=== PATIENT | female | born 1950 | race Caucasian/White ===

== ENCOUNTER 2019-09-30 15:15 | Emergency (ER) | payer BC ==
[2019-09-30] MEDS ORDERED: Metoclopramide 10 MG/2 ML SDV IVPUSH ONE (15:54)
[2019-09-30] MEDS ORDERED: HYDROmorphone 0.5 MG/0.5 ML Syringe IVPUSH ONE ×2 (15:54→17:58)
[2019-09-30] MEDS ORDERED: Hyoscyamine 0.125 MG Tab.SL SL ONE (15:54)
[2019-09-30] MEDS ORDERED: Ketorolac 30 MG/ML SDV IVPUSH ONE (15:54)
[2019-09-30] MEDS ORDERED: Sodium Chloride 0.9% 1,000 ML IV SCH (16:00)
--- NOTE | 2019-09-30 16:07 | EDM.PDOC ---
ED HPI GENERAL MEDICAL PROBLEM - General Chief Complaint: Abdominal Pain Stated Complaint: [facility] Time Seen by Provider: 09/30/19 15:30 Source of Information: Reports: Patient, RN Notes Reviewed History Limitations: Reports: No Limitations - History of Present Illness INITIAL COMMENTS - FREE TEXT/NARRATIVE: Patient is a 69-year-old female who presents via [facility] ambulance service to the ED for the evaluation of severe sudden onset right upper quadrant pain that shot to her right shoulder. The patient notes that she was a preschool teacher's assistant at school, when at around 2:15 PM, she developed sudden onset right upper abdominal pain that hit her out of nowhere, and this did radiate to her right shoulder, she notes this to be somewhat intermittent, but it is kind of a constant pain there all the time with flares of it being worse. Patient notes that she was nauseated and did vomit with this pain as well. Patient states that the pain was so intense, that she felt as if she could not straighten her body out. She has not had any abdominal surgeries to still retains her appendix and gallbladder. She notes that for lunch at around noon today they had cheeseburger, beans, smiley fries and a veggie plate. Patient denies any sort of blood in her urine or dysuria, urinary frequency or urgency. She notes that she did wake up this morning with a minor backache and this is not normal for her. Patient also recounts a previous fall within the last week or so, but she states this was onto her left side. Patient states she has not felt pain like this before ever. Patient states she was in good health prior to this. 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: Reports: IV/IO Right Shoulder Pain Score (Numeric/FACES): 8 - Related Data Allergies Allergy/AdvReac Type Severity Reaction Status Date / Time No Known Allergies Allergy Verified 09/30/19 15:22 Home Meds: Home Meds Acetaminophen/HYDROcodone [[place] 325-5 MG] 1 tab PO Q6H PRN #12 tablet 09/30/19 [Rx] Lisinopril 10 mg PO DAILY 09/30/19 [History] Ondansetron [Zofran ODT] 4 mg PO Q8H PRN #15 tab.dis 09/30/19 [Rx] Simvastatin 40 mg PO DAILY 09/30/19 [History] Zolpidem Tartrate [Ambien] 5 mg PO DAILY 09/30/19 [History] Past Medical History Cardiovascular History: Reports: Hypertension 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 Denies: Diarrhea : Denies: Dysuria, Frequency, Urgency Musculoskeletal: Reports: Shoulder Pain (Right shoulder pain) ED EXAM, GI/ABD - Physical Exam Exam: See Below Exam Limited By: No Limitations General Appearance: Alert, WD/WN, No Apparent Distress Eyes: Bilateral: Normal Appearance Throat/Mouth: Normal Inspection, Normal Lips, Normal Teeth, Normal Gums, Normal Oropharynx, Normal Voice, No Airway Compromise Head: Atraumatic, Normocephalic Neck: Normal Inspection, Supple, Non-Tender, Full Range of Motion Respiratory/Chest: No Respiratory Distress, Lungs Clear, Normal Breath Sounds, No Accessory Muscle Use, Chest Non-Tender Cardiovascular: Normal Peripheral Pulses, Regular Rate, Rhythm, No Murmur GI/Abdominal Exam: Normal Bowel Sounds, Soft, No Distention, No Mass, Tender ( RUQ, giron sign positive. Pt notes that the pain is worsened by deep breaths). No: Guarding, Rigid Extremities: Normal Inspection, Normal Range of Motion, Normal Capillary Refill Neurological: Alert, Oriented, Normal Cognition, No Motor/Sensory Deficits Psychiatric: Normal Affect, Normal Mood Skin Exam: Warm, Dry, Intact, Normal Color, No Rash Course - Vital Signs Last Recorded V/S: Last Vital Signs Temp 97.4 F 09/30/19 15: Pulse 58 L 09/30/19 15:19 Resp 16 09/30/19 15:19 BP 153/75 H 09/30/19 15:19 Pulse Ox 99 09/30/19 15:19 - Orders/Labs/Meds Orders: Active Orders 24 hr Category Date Time Status Sodium Chloride 0.9% [Normal Saline] 1,000 ml Med 09/30/19 16:00 Ordered IV ASDIRECTED Medication Orders Sodium Chloride (Normal Saline) 1,000 mls @ 999 mls/hr IV ASDIRECTED POLA Last Admin: 09/30/19 16:11 Dose: 999 mls/hr Labs: Laboratory Tests 09/30/19 09/30/19 09/30/19 Range/Units 16:28 16:28 17:49 WBC 12.17 H (3.98-10.04) K/mm3 RBC 4.21 (3.98-5.22) M/mm3 Hgb 12.5 D (11.2-15.7) gm/dl Hct 38.0 (34.1-44.9) % MCV 90.3 (79.4-94.8) fl MCH 29.7 (25.6-32.2) pg MCHC 32.9 (32.2-35.5) g/dl RDW Std Deviation 44.2 (36.4-46.3) fL Plt Count 218 (182-369) K/mm3 MPV 11.0 (9.4-12.3) fl Neutrophils % (Manual) 77 H (40-60) % Band Neutrophils % 1 (0-10) % Lymphocytes % (Manual) 20 (20-40) % Atypical Lymphs % 0 % Monocytes % (Manual) 0 L (2-10) % Eosinophils % (Manual) 1 (0.7-5.8) % Basophils % (Manual) 1 (0.1-1.2) Platelet Estimate Adequate RBC Morph Comment Normal Sodium 137 (136-145) mEq/L Potassium 4.2 (3.5-5.1) mEq/L Chloride 101 (98-107) mEq/L Carbon Dioxide 24 (21-32) mEq/L Anion Gap 16.2 H (5-15) BUN 23 H (7-18) mg/dL Creatinine 1.0 (0.55-1.02) mg/dL Est Cr Clr Drug Dosing 46.50 mL/min Estimated GFR (MDRD) 55 (>60) mL/min BUN/Creatinine Ratio 23.0 H (14-18) Glucose 116 H (80-115) mg/dL Calcium 9.2 (8.5-10.1) mg/dL Total Bilirubin 0.5 (0.2-1.0) mg/dL GGT 29 (5-55) U/L AST 18 (15-37) U/L ALT 28 (14-59) U/L Alkaline Phosphatase 79 (46-116) U/L C-Reactive Protein 0.3 (<1.0) mg/dL Total Protein 7.7 (6.4-8.2) g/dl Albumin 4.3 (3.4-5.0) g/dl Globulin 3.4 gm/dL Albumin/Globulin Ratio 1.3 (1-2) Amylase 44 (25-115) U/L Lipase 336 (73-393) U/L Urine Color Yellow (Yellow) Urine Appearance Clear (Clear) Urine pH 6.5 (5.0-8.0) Ur Specific [place] 1.025 (1.005-1.030) Urine Protein Negative (Negative) Urine Glucose (UA) Negative (Negative) Urine Ketones Negative (Negative) Urine Occult Blood Negative (Negative) Urine Nitrite Negative (Negative) Urine Bilirubin Negative (Negative) Urine Urobilinogen 0.2 (0.2-1.0) Ur Leukocyte Esterase Negative (Negative) Urine RBC 0-5 (0-5) /hpf Urine WBC 0-5 (0-5) /hpf Ur Squamous Epith Cells 0-5 (0-5) /hpf Urine Bacteria Few (FEW) /hpf Urine Mucus Few (FEW) /hpf Meds: Medications Generic Name Dose Route Start Last Admin Trade Name Jed PRN Reason Stop Dose Admin Sodium Chloride 1,000 mls @ 999 mls/hr 09/30/19 16:00 09/30/19 16:11 Normal Saline IV 999 mls/hr ASDIRECTED POLA Administration Discontinued Medications Generic Name Dose Route Start Last Admin Trade Name Jed PRN Reason Stop Dose Admin Hydromorphone HCl 0.5 mg 09/30/19 15:54 09/30/19 16:11 Dilaudid IVPUSH 09/30/19 15:55 0.5 mg ONETIME ONE Administration Hydromorphone HCl 0.5 mg 09/30/19 17:58 09/30/19 18:05 Dilaudid IVPUSH 09/30/19 17:59 0.5 mg ONETIME ONE Administration Hyoscyamine 0.125 mg 09/30/19 15:54 09/30/19 16:17 Hyomax-Sl SL 09/30/19 15:55 0.125 mg ONETIME ONE Administration Ketorolac Tromethamine 30 mg 09/30/19 15:54 09/30/19 16:11 Toradol IVPUSH 09/30/19 15:55 30 mg ONETIME ONE Administration Metoclopramide HCl 10 mg 09/30/19 15:54 09/30/19 16:11 Reglan IVPUSH 09/30/19 15:55 10 mg ONETIME ONE Administration Ondansetron HCl 4 mg 09/30/19 18:10 09/30/19 18:23 Zofran IVPUSH 09/30/19 18:11 4 mg ONETIME ONE Administration - Re-Assessments/Exams Free Text/Narrative Re-Assessment/Exam: 09/30/19 16:10 Patient presents to the ED for the evaluation of right upper quadrant abdominal pain. Her clinical exam would suggest that she has pain of gallbladder etiology. I will do labs to include CBC, CMP, CRP, lipase, amylase, GGT and urinalysis, as the pain was sharp in onset, and did radiate to her right shoulder blade. She will be given some IV fluids, 10 mg Reglan, 0.5 mg Dilaudid , and 30 mg IV Toradol for initial management. Departure - Departure Time of Disposition: 18:48 Disposition: Home, Self-Care 01 Condition: Good Clinical Impression: Colicky RUQ abdominal pain, Gallbladder attack - Discharge Information *PRESCRIPTION DRUG MONITORING PROGRAM REVIEWED*: No *COPY OF PRESCRIPTION DRUG MONITORING REPORT IN PATIENT MALATHI: No Instructions: Gallbladder Eating Plan, Cholelithiasis Referrals: PCP,Unknown [Primary Care Provider] - Forms: ED Department Discharge Additional Instructions: You were evaluated in the ER today regarding your right upper quadrant abdominal pain with pain into your right shoulder blade. Your clinical symptoms are most likely consistent with a gallbladder attack in nature, which would suggest that you might be suffering from gallstones. Your laboratory evaluation demonstrated no focal abnormalities, there is no infection, and you do not have any electrolyte abnormalities noted. Your urinalysis was also within normal limits. You have been given an outpatient order for a gallbladder ultrasound, radiology will call you to schedule this appointment as there are specific instructions you need to follow for this test. You may take 500 mg Tylenol or 600 mg ibuprofen every 6 hours as needed for further pain relief, do not exceed 4000 mg Tylenol or 3200 mg ibuprofen in a 24- hour time span. You were given a couple tablets of a stronger pain medication, hydrocodone/acetaminophen 5/325, please take 1 tab every 6 hours as needed for pain not relieved by Tylenol or ibuprofen alone. Please note that the hydrocodone/acetaminophen does contain extra Tylenol, so please watch how much you are taking in a 24-hour time span. These meds can also be somewhat constipating recommend that you take a stool softener like MiraLAX while taking these medications. This medication is also quite addictive, please take as few of these as possible to achieve adequate pain control. You were also given a prescription for an antinausea medication, Zofran, please use as directed. Please return to the ER at any time if symptoms change or worsen. Sepsis Event Note - Evaluation Sepsis Screening Result: No Definite Risk - Focused Exam Vital Signs: Vital Signs Temp Pulse Resp BP Pulse Ox 09/30/19 15:19 97.4 F 58 L 16 153/75 H 99 Date Exam was Performed: 09/30/19 Time Exam was Performed: 18:48 - My Orders Last 24 Hours: My Active Orders 09/30/19 16:00 Sodium Chloride 0.9% [Normal Saline] 1,000 ml IV ASDIRECTED - Assessment/Plan Last 24 Hours: My Active Orders 09/30/19 16:00 Sodium Chloride 0.9% [Normal Saline] 1,000 ml IV ASDIRECTED
[2019-09-30] MEDS ORDERED: Ondansetron 4 MG/2 ML SDV IVPUSH ONE (18:10)
== END 2019-09-30 19:12 | disposition home or self-care (01) ==
LOC: JD.ED 15:15
DX: K82.9 Disease of gallbladder, unspecified (principal); I10 Essential (primary) hypertension; Z79.899 Other long term (current) drug therapy
CPT/HCPCS: 36415; 80053; 81001; 82150; 82977; 83690; 85007; 85027; 86140; 96361; 96374; 96375; 96376; 99284; A9270; J1170; J1885; J2405; J2765; J7030

== ENCOUNTER 2021-05-05 22:00 | Emergency (ER) | payer MEDICARE, OTHER ==
[2021-05-05] MEDS ORDERED: Ondansetron 4 MG Tab.DIS ONE (23:11)
[2021-05-05] MEDS ORDERED: predniSONE 20 MG Tab ONE (23:11)
[2021-05-05] MEDS ORDERED: Orphenadrine 100 MG Tab.ER ONE (23:11)
[2021-05-05] MEDS ORDERED: HYDROmorphone 1 MG/ML Syringe ONE (23:11)
--- NOTE | 2021-05-06 06:50 | EDM.PDOC ---
ED HPI GENERAL MEDICAL PROBLEM - General Chief Complaint: Lower Extremity Injury/Pain Stated Complaint: LEFT LEG PAIN Time Seen by Provider: 05/05/21 22:30 Source of Information: Reports: Patient, Other (Friend) History Limitations: Reports: No Limitations - History of Present Illness INITIAL COMMENTS - FREE TEXT/NARRATIVE: Due to unscheduled computer downtime, handwritten notes taken on this patient's encounter were later recreated in this electronic record. Ms. Garces is a very pleasant 70-year-old woman who now presents the ED stating that she had pain radiating from her lower left back, through her left buttock, and down the lateral aspect of her left thigh to her knee, when she woke around 8:00 this morning. She states that occasionally the pain radiates to her foot, and she states that sometimes her left knee feels like it is pulsating. The pain is present even if she remains still, but is worse if her left lower extremity is not elevated (with her left hip being flexed while she is supine), with movement, or with bearing weight. She denies weakness of either lower extremity, saddle anesthesia, or incontinence of bowel or bladder. She reports that she has had nausea, and that she vomited 5 times this morning, since 9:00 or 10:00 this morning. She believes that her nausea and vomiting are due to her pain. No injury to her left lower extremity or back. No prior similar symptoms. The patient states that she took 1 tablet of Aleve around 0, with no significant improvement in her symptoms. Here in the ED, the patient's initial BP is found to be moderately elevated at 167/71, otherwise, she is hemodynamically stable, afebrile, saturating 97% on room air. Prior to this morning, The patient denies having a recent fever, chills, sore throat, ear pain, nasal or sinus congestion, cough, dyspnea, chest pain, palpitations, nausea, vomiting, constipation, diarrhea, abdominal pain, urinary symptoms, recent weight gain or weight loss, recent bloody bowel movements or black bowel movements, recent joint aches, headaches, or rashes. The patient's PCP is Kaleigh Araujo NP. She does not recall the name of her [employer]. She has received 2 COVID vaccinations. - Related Data Allergies Allergy/AdvReac Type Severity Reaction Status Date / Time No Known Allergies Allergy Verified 05/06/21 00:38 Home Meds: Home Meds Acetaminophen/HYDROcodone [[place] 325-5 MG] 1 tab PO Q6H PRN #12 tablet 09/30/19 [Rx] Ondansetron [Zofran ODT] 4 mg PO Q8H PRN #15 tab.dis 09/30/19 [Rx] Simvastatin 40 mg PO DAILY 09/30/19 [History] Zolpidem Tartrate [Ambien] 5 mg PO DAILY 09/30/19 [History] lisinopriL [Lisinopril] 10 mg PO DAILY 09/30/19 [History] Past Medical History Cardiovascular History: Reports: High Cholesterol, Hypertension Respiratory History: Reports: Sleep Apnea (nightly CPAP) Gastrointestinal History: Reports: GERD Oncologic (Cancer) History: Reports: Basal Cell Carcinoma - Past Surgical History HEENT Surgical History: Reports: Adenoidectomy, Tonsillectomy GI Surgical History: Reports: Colonoscopy (x 10), EGD (x 3 or 4) Musculoskeletal Surgical History: Reports: ORIF (right leg/ankle) Social & Family History - Tobacco Use Tobacco Use Status *Q: Never Tobacco User - Alcohol Use Alcohol Use History: Yes Alcohol Use Frequency: Socially - Recreational Drug Use Recreational Drug Use: No - Living Situation & Occupation Living situation: Reports: , Alone Occupation: Retired ED ROS GENERAL - Review of Systems Review Of Systems: Comprehensive ROS is negative, except as noted in HPI. ED EXAM, GENERAL - Physical Exam Exam: See Below Exam Limited By: No Limitations General Appearance: Alert, WD/WN, No Apparent Distress Eye Exam: Bilateral Eye: EOMI, Normal Inspection Ears: Normal External Exam, Hearing Grossly Normal Nose: Normal Inspection Throat/Mouth: Normal Inspection, Normal Lips, Normal Voice, No Airway Compromise Head: Atraumatic, Normocephalic Neck: Normal Inspection, Full Range of Motion Respiratory/Chest: No Respiratory Distress, Lungs Clear, Normal Breath Sounds, No Accessory Muscle Use Cardiovascular: Normal Peripheral Pulses, Regular Rate, Rhythm, No Edema, No Gallop, No JVD, No Murmur, No Rub Peripheral Pulses: 3+: Radial (L), Radial (R) GI/Abdominal: Normal Bowel Sounds, Soft, Non-Tender, No Organomegaly, No Distention, No Abnormal Bruit, No Mass Back Exam: Normal Inspection, Full Range of Motion, Muscle Spasm (reproducible tenderness over left SI joint), Other (Rt SLR neg to 80 deg, Lt neg to 90 deg. Flex neg to 90 deg, extension neg to 30 deg. Tilt neg bilat to 30 deg. Twist neg bilat to 20 deg. Unilat knee bend impaired on left.). No: Vertebral Tenderness Extremities: Normal Inspection, Normal Range of Motion, No Pedal Edema, Normal Capillary Refill, Other (Reproducible tenderness to palpation of the left buttock. No tenderness to palpation of the hip. Painless left hip PROM.) Neurological: Alert, Oriented, Normal Cognition, No Motor/Sensory Deficits, Other (Antalgic gait. Normal dorsiflexion/plantarflexion bilaterally.) Psychiatric: Normal Affect Skin Exam: Warm, Dry, Intact, Normal Color, No Rash Course - Re-Assessments/Exams Free Text/Narrative Re-Assessment/Exam: 05/05/21 23:10 As above, the patient had lower left back pain radiating down her left buttock and her left thigh when she woke up this morning. Her symptoms are not reproduced with flexion of her left lower extremity, however, her left lower back pain is reproducible with palpation in the area. This indicates that the source of her sciatica is likely due to a muscle spasm with inflammation in her left SI joint area, and not due to left lumbar radiculopathy, due to arthritis of the facets or a herniated intervertebral disc. We discussed treatment options, but agreed upon prednisone, Norflex, and Zofran. The patient will also be given a single injection of Dilaudid IM here in the ED, but I am not going to prescribe opiates for home. The patient was given handwritten prescriptions for: Prednisone 20 mg, 1 tab po QPM # 6, NR Norflex 100 mg, 1 tab po Q12 hrs #14, NR Zofran 4 mg ODT, 1 tab po Q8 hrs #10, NR She was instructed to not take any NSAIDs while taking prednisone. She was instructed to stay active, and follow-up with her PCP if her symptoms persisted beyond a few days, to discuss the option of referral to physical therapy. Departure - Departure Time of Disposition: 23:20 Disposition: Home, Self-Care 01 Condition: Good Clinical Impression: Left sided sciatica - Discharge Information *PRESCRIPTION DRUG MONITORING PROGRAM REVIEWED*: Not Applicable *COPY OF PRESCRIPTION DRUG MONITORING REPORT IN PATIENT MALATHI: Not Applicable Referrals: Kaleigh Araujo NP [Primary Care Provider] - Forms: ED Department Discharge Additional Instructions: You were seen in the emergency room for pain extending from your left buttock area down your left lower extremity. Based on your history and physical examination, you are most likely suffering from left sciatica. You have been started on the muscle relaxant Norflex, the steroid prednisone, the antinausea medicine Zofran, and you were also given an intramuscular injection of the opioid Dilaudid. Prescriptions for Norflex, prednisone, and Zofran have been provided to you. Take 1 tablet of Norflex every 12 hours, starting tomorrow morning, , 05/06/2021. Take 1 tablet of prednisone every evening, starting tomorrow evening, , 05/06/2021, as prescribed. You may dissolve 1 tablet of Zofran up to every 8 hours, as needed for nausea/vomiting. As discussed, it is very important that you not take any NSAIDs, such as aspirin, ibuprofen (Advil, Motrin), or naproxen (Aleve) when you are taking prednisone, as the combination can significantly increase the risk of your developing an ulcer. As discussed, it is very important that you stay active. Swimming is best, but walking is good, as well, even though you will be sore. Do not just lay in bed. If you are still having significant pain after a couple of days, please follow- up with your PCP, Kaleigh Araujo NP, to discuss the option of referral to physical therapy. If any other problems, please do not hesitate to return to the ER.
== END 2021-05-05 23:56 | disposition home or self-care (01) ==
LOC: JD.ED 22:00
DX: M54.42 Lumbago with sciatica, left side (principal); E78.00 Pure hypercholesterolemia, unspecified; I10 Essential (primary) hypertension; K21.9 Gastro-esophageal reflux disease without esophagitis; Z79.899 Other long term (current) drug therapy
CPT/HCPCS: 96372; 99283; A9270; J1170; J7512